=== PATIENT | male | born 1940 | race Caucasian/White ===

== ENCOUNTER → 2017-01-08 07:34 | Outpatient (CLI) | payer MEDICARE, OTHER ==
--- NOTE | ~2017-01-08 | HEMODYNAMI ---
PATIENT:FRANCIS OGLESBY MEDICAL RECORD: [id number] : 40 LOCATION:[facility] ADMISSION DATE: 01/08/17 Generatedon:01/08/20179:49 Patient name: FRANCIS OGLESBY Patient #: [id number] SSN: : 1940 Date of study: 01/08/2017 Page: Of Hemodynamic Procedure Report Patient Data Patient Demographics Procedure consent was obtained First Name: FRANCIS Gender: Male Last Name: RENY : 1940 [facility] Initial: BARBRA Age: 76 year(s) Patient #: [id number] Race: Additional ID: [id number] Contact details [address]: [address] [place] [address] [address] State: [place] City: [place] Zip code: [address] Past Medical History Allergies Allergen Reaction Date Comments Reported Other allergy 12/31/2014 Plavix (rash) Admission Admission Data Admission Date: 01/08/2017 Admission Time: 7:34 Procedure Procedure Types Cath Procedure Diagnostic Procedure C [facility] w/Coronaries FFR/IVUS Intra-Coronary IVUS Initial PCI Procedure Coronary Stent Initial Miscellaneous Procedures Moderate Sedation up to 15 minutes Procedure Description Procedure Date Procedure Date: 01/08/2017 Procedure Start Time: 9:25 Procedure End Time: 9:48 Procedure Staff Name Function Anand Garcia MD Performing Physician Celestino Kruger RN Nurse Cedric Gandara RT Monitor Breanna James RT Scrub Procedure Data Cath Procedure Fluoroscopy Diagnostic fluoroscopy Total fluoroscopy Time: 3.9 time: 3.9 min min Diagnostic fluoroscopy Total fluoroscopy dose: 538 dose: 538 mGy mGy Contrast Material Contrast Material Type Amount (ml) Isovue 300 90 Entry Location Entry Primary Successful Side Size Upsize Upsize Entry Closure Succes sful Closure Location (Fr) 1 (Fr) 2 (Fr) Remarks Device Remarks Femoral Right 5 Fr 6 Fr Exoseal artery Short Estimated blood loss: 10 ml Diagnostic catheters Device Type Used For End Catheter Placement Cordis 5Fr Pigtail Procedure Catheter (MP) Cordis 5Fr JL 4.0 Procedure Catheter (MP) Cordis 5Fr 3DRC Catheter Procedure (MP) Diagnostic Infinity 5Fr Procedure JL 6 catheter Procedure Complications No complications Procedure Medications Medication Administration Route Dosage 0.9% NaCl I.V. 100 ml/hr Oxygen NC 2 l/min Heparin Flush Bag added to field 2 bags (1000units/500ml NS) Lidocaine 2% added to field 20 Versed I.V. 1 mg Fentanyl I.V. 50 mcg Heparin Bolus I.V. 4000 units Fentanyl I.V. 25 mcg Hemodynamics Rest Heart Rate: 72 (bpm) Snapshots Pre Cath Intra NCS Post Cath Vital Signs Time Heart Resp SPO2 etCO2 [id number] NIBP (mmHg) Rhythm Pain Sedation Rate (ipm) (%) (mmHg) (mmHg) Status Level (bpm) 9:18:45 72 14 99 0 0 112/76(86) NSR 0 (11) 10(A) , No pain 9:23:26 77 20 100 0 0 109/64(95) NSR 0 (11) 10(A) , No pain 9:28:04 72 16 98 0 0 107/65(100) NSR 0 (11) 10(A) , No pain 9:32:45 71 16 97 0 0 104/58(71) NSR 0 (11) 9(A) , No pain 9:37:23 60 14 98 0 0 110/61(80) NSR 0 (11) 10(A) , No pain 9:42:04 75 16 97 0 0 92/59(67) NSR 0 (11) 10(A) , No pain 9:46:40 64 12 98 0 0 100/61(72) NSR 0 (11) 10(A) , No pain Medications Time Medication Route Dose Verified Delivered Reason Notes Effectiveness by by 9:16:49 0.9% NaCl I.V. 100 Celestino Celestino Per physician ml/hr Slick Kruger RN RN 9:17:06 Oxygen NC 2 Celestino Celestino Per physician l/min Slick Kruger RN RN 9:17:25 Heparin Flush added 2 Celestino Celestino used for Bag to bags Slick Kruger procedure (1000units/500ml field RN RN NS) 9:17:43 Lidocaine 2% added 20ml Celestino Celestino for local to vial Lorigan Lorphi anesthetic field RN RN 9:25:46 Versed I.V. 1 mg Celestino Celestino for sedation Slick Kruger RN RN 9:25:56 Fentanyl I.V. 50 Celestino Celestino for sedation mcg Slick Kruger RN RN 9:33:57 Heparin Bolus I.V. 4000 Celestino Celestino for units Slick Kruger anticoagulation RN RN 9:45:52 Fentanyl I.V. 25 Celestino Celestino for sedation mcg Slick Kruger RN black leather buffer Log Time Note 8:55:33 Celestino Kruger RN sent for patient. Start room use. ::33 Time tracking: Regular hours 9:07:38 Plan of Care:Hemodynamics will remain stable., Cardiac rhythm will remain stable., Comfort level will be maintained., Respiratory function will remain adequate., Patient/ family verbilizes understanding of procedure., Procedure tolerated without complication., Recovers from procedure without complications.. 9:08:51 Patient received from Pre/Post Procedure Room to [facility] 1 Alert and oriented. Tansferred to table in Supine position. 9:08:52 Warm blankets applied, and jackie hugger turned on for patient comfort. 9:08:53 Correct patient and procedure confirmed by team. 9:08:54 Signed procedure consent form obtained from patient. 9:08:55 ECG and BP/O2 sat monitors applied to patient. 9:16:49 0.9% NaCl 100 ml/hr I.V. was administered by Celestino Kruger RN; Per physician; 9:17:06 Oxygen 2 l/min NC was administered by Celestino Kruger RN; Per physician; 9:17:25 Heparin Flush Bag (1000units/500ml NS) 2 bags added to field was administered by Celestino Kruger RN; used for procedure; 9:17:43 Lidocaine 2% 20ml vial added to field was administered by Celestino Kruger RN; for local anesthetic; 9:17:51 Vital chart was started 9:21:47 Baseline sample Acquired. 9:21:52 Rhythm: paced 9:21:54 Full Disclosure recording started 9:22:08 H&P Date Dictated: 01/03/2017 Within 30 days and on chart., H&P Addendum completed by physician on day of procedure. (MUST COMPLETE FOR ALL OUTPATIENTS). 9:22:09 Pre-procedure instructions explained to patient. 9:22:09 Pre-op teaching completed and patient verbalized understanding. 9:22:16 Family in patients room. 9:22:18 Patient NPO since Midnight. 9:22:19 Is the patient allergic to Iodine/contrast media? No. 9:22:21 Is patient on blood thinner?Yes 9:22:23 ACC The patient was administered the following blood thiners within the last 24 hours: ACCEffient 9:22:26 Patient diabetic? Yes. 9:22:27 If diabetic: On Metformin? Yes 9:22:29 If on Metformin: Last Dose? 01/06/2017 9:22:31 Previous problem with sedation/anesthesia? No ? 9:22:32 Snore? Yes 9:22:33 Sleep apnea? No 9:22:34 Deviated septum? No 9:22:35 Opens mouth fully? Yes 9:22:35 Sticks out tongue? Yes 9:22:37 Airway obstruction? No ? 9:22:41 Dentures? Yes OUT 9:22:48 Pre procedure: right dorsailis pedis pulse 1+ Palpable, but thready & weak; easily obliterated 9:22:51 Patient pain scale 0/10 ?. 9:22:58 IV patent on arrival in left forearm with 0.9% NaCl at O. 9:23:00 Lab results completed and on chart. 9:23:03 Right groin area was prepped with chlora-prep and draped in sterile fashion 9:23:03 Alarms reviewed by R. N. 9:23:04 Sharps counted by scrub and verified by R.N. 9:23:05 --------ALL STOP TIME OUT------ 9:23:05 Final Timeout: patient, procedure, and site verified with staff and physician. All members of the team are in agreement. 9:23:07 Right groin site verified by team. 9:23:09 Physical assessment completed. ASA score P 2 - A patient with mild systemic disease as per Anand Garcia MD. 9:23:13 Sedation plan: IV Moderate Sedation Versed, Fentanyl 9:25:02 Use device set Femoral Dx 9:25:03 Tegaderm 4 x 4 opened to sterile field. 9:25:05 Acist Hand Control opened to sterile field. 9:25:06 Acist Manifold opened to sterile field. 9:25:07 Acist Syringe opened to sterile field. 9:25:07 Bag Decanter opened to sterile field. 9:25: Medline Cath Pack opened to sterile field. 9:25: Terumo 5Fr [place] Sheath opened to sterile field. 9:25:08 [place] 260cm J .035 wire opened to sterile field. 9:25: Diagnostic Infinity 5Fr Multipack catheter opened to sterile field. 9:25:16 Procedure started. 9::19 Local anesthetic to right femoral artery with Lidocaine 2% by Anand Garcia MD.INITIAL ACCESS ONLY 9::46 Versed 1 mg I.V. was administered by Celestino Kruger RN; for sedation; 9::56 Fentanyl 50 mcg I.V. was administered by Celestino Kruger RN; for sedation; 9::12 A 5 Fr sheath was inserted into the Right Femoral artery 9::46 A Cordis 5Fr Pigtail Catheter (MP) was advanced over the wire and used for Procedure. 9:27:23 LV angiography performed. 9:27:25 LV gram done using HARRY 9:27:29 EF : 10 % 9::38 Injector settings: Ml/sec: 10, Volume: 20, 9::43 Catheter removed. 9:27:45 A Cordis 5Fr JL 4.0 Catheter (MP) was advanced over the wire and used for Procedure. 9:28:33 Catheter removed. unable to cannulate vessel. 9:30:04 A Cordis 5Fr 3DRC Catheter (MP) was advanced over the wire and used for Procedure. 9:30:09 RCA angiography performed. 9:30:10 Catheter removed. 9:30:16 A Diagnostic Infinity 5Fr JL 6 catheter was advanced over the wire and used for Procedure. 9:30:44 LCA angiography performed. 9:31:00 Terumo 6Fr [place] Sheath opened to sterile field. 9:31:00 Merit BasixCompak Inflation Kit opened to sterile field. 9:31:01 Deleon Whisper J 300cm 0.014 guide wire opened to sterile field. 9:31:40 [place] IVUS Catheter opened to sterile field. 9:33:04 Catheter removed. 9:33:43 Medtronic Launcher 6Fr JL 6.0 guide catheter opened to sterile field. 9:33:57 Heparin Bolus 4000 units I.V. was administered by Celestino Kruger RN; for anticoagulation; 9:34:14 Sheath upsized to a 6 Fr Short. 9:37:35 6 Fr JL 6 guide catheter was inserted over the wire 9:38:33 Whisper wire advanced. 9:39:18 Wire advanced across lesion. 9:39:25 IVUS catheter advanced over wire. 9:40:15 IVUS pass to LAD lesion performed. 9:40:48 IVUS catheter removed over wire. 9:43:36 Inflation Number: 1 A [place] OTW 4.0 x 12 stent was prepped and advanced across the Prox LAD. The stent was deployed at 17 RUSTAM for 0:10 (min:sec). 9:43:51 Stent catheter was removed intact over wire. 9:43:52 Wire removed. 9:43:53 Guide catheter removed. 9:44:07 Cordis 6Fr Exoseal opened to sterile field. 9:44:16 Sheath removed intact; hemostasis achieved with Exoseal to the Right Femoral artery. 9:44:20 Procedure ended.(Physican Out) 9:45:09 Fluoroscopy time 03.90 minutes. 9:45:12 Fluoroscopy dose: 538 mGy 9:45:12 Flurop Dose total: 538 9:45:17 Contrast amount:Isovue 300 90ml. 9:45:18 Sharps counted by scrub and verified by R.N. 9:45:52 Fentanyl 25 mcg I.V. was administered by Celestino Kruger RN; for sedation; 9:46:29 Insertion/operative site no bleeding no hematoma. 9:46:31 Post-op/insertion site Right Femoral artery dressed using a 4 x 4 and Tegaderm. 9:46:33 Post Procedure Pulses reassessed and unchanged 9:46:37 Post-procedure physical assessment completed. ASA score P 2 - A patient with mild systemic disease as per Anand Garcia MD. 9:46:40 Post procedure rhythm: unchanged. 9:46:43 Estimated blood loss: 10 ml 9:46:45 Post procedure instruction explained to patient.Patient verbalizes understanding. 9:46:45 Patient needs reinforcement of post procedure teaching. 9:46:53 Procedure type changed to Cath procedure, Diagnostic procedure, LHC, LHC w/Coronaries, FFR/IVUS, Intra-Coronary IVUS Initial, PCI procedure, Coronary Stent Initial, Miscellaneous Procedures, Moderate Sedation up to 15 minutes 9:46:55 Procedure and supply charges have been captured, reviewed, submitted and are correct. 9:46:57 Procedure Complication : No complications 9:48:48 Vital chart was stopped 9:48:49 See physician's report for complete and final results. 9:48:50 Report given to Pre/Post Procedure Room. 9:48:53 Patient transfered to Pre/Post Procedure Room with Stretcher. 9:48:55 Procedure ended. 9:48:55 Full Disclosure recording stopped 9:49:02 End room use (Document Last) Intervention Summary Intervention Notes Time ActionType Lesion and Equipment Action# Pressure Duration Attributes Used 9:43:36 Place stent Prox LAD Eddie OTW 1 17 00:10 4.0 x 12 stent Device Usage Item Name Manufacture Quantity Catalog Hospital Part Current Minima l Lot# / Number Charge Number Stock Stock Serial# Code Tegaderm 4 3M 1 [id number] 263196 299780 5 x 4 Acist Hand Acist 1 35712 912334 205929 585774 5 Control Medical Systems Inc Acist Acist 1 51007 325355 280657 165131 5 Manifold Medical Systems Inc Acist Acist 1 59442 853855 183245 022574 20 Syringe Medical Systems Inc Bag Microtek 1 2002S 798171 76509 406411 5 Decanter Medical Inc. Medline Cardinal 1 [id number] 317519 57005 014620 5 Cath Pack Health Terumo 5Fr Terumo 1 [id number] 693341 813158 059823 [address] [place] [address] [facility] 1 241345 241382 022612 090648 30 260cm J .035 wire Diagnostic Cardinal 1 [id number] 338884 23995 322070 30 Infinity Health 5Fr Multipack catheter Cordis 5Fr Cardinal 1 [id number] 5 Pigtail Health Catheter (MP) Cordis 5Fr Cardinal 1 254150 5 JL 4.0 Health Catheter (MP) Cordis 5Fr Cardinal 1 537066 5 3DRC Health Catheter (MP) Diagnostic Cardinal 1 [id number] 980439 767552 305568 5 Infinity Health 5Fr JL 6 catheter Terumo 6Fr Terumo 1 IHR286 451158 147904 382558 40 [place] Sheath Merit Merit 1 [id number] 595374 254374 937546 15 [facility] Inflation Kit Deleon Deleon 1 [id number] 208532 713467 912386 5 Whisper J Vascular 300cm 0.014 guide wire [place] 1 [id number] 312230 249476 374470 8 [place] IVUS Catheter Medtronic Medtronic 1 [id number] 977128 45162 112342 0 Launcher 6Fr JL 6.0 guide catheter [place] OTW Medtronic 1 [id number] 362690 0874464 002695 5 [id number] 4.0 x 12 stent Cordis 6Fr Cardinal 1 EX600 455954 384363 623312 10 [facility] Gastrofy Signature Audit [place] Stage Time Signature Unsigned Intra-Procedure 01/08/2017 Cedric Gandara 9:49:29 AM RT(R) Signatures Monitor : Cedric Gandara RT Signature : Date : Time : [place] [id number] [place] [id number]
[~2017-01-08 07:34] MED LIST: ALEVE220 MG PO; ANTIVERT25 MG PO; ASPIRIN EC81 M1 PO; BUMEX2 MG PO; CENTRUM COMPLE1 EACH PO; COREG 3.1253.125 MG PO; EFFIENT10 MG PO; FISH OIL 1,0001 CA1 PO; FISH OIL PO; GLUCOPHAGE500 MG PO; ISOSORBIDE MONO60 M1 PO; K-TAB10 MEQ PO; LASIX40 MG PO; LIPITOR20 MG PO; POTASSIUM PO; PRILOSEC20 MG PO
[2017-01-08 08:21] VITALS: BP 133/67; BMI 25.0
[2017-01-08 08:37] LABS: BASOPHILS 0.4 % (0-2); HEMATOCRIT 40.6 % (42.0-54.0); HEMOGLOBIN 13.4 g/dL (13.5-17.5); IMMATURE GRANULOCYTES 0.3 % (0-5); MCH 32.8 pg (26.0-34.0); MCV 99.3 fL (80.0-100.0); MEAN PLATELET VOLUME 11.5 fL (7.4-10.4); MONOCYTES 12.3 % (2-11); PLATELET COUNT 172 10x3/uL (130-400); RBC 4.09 10x6/uL (4.20-6.10); RDW 15.3 % (11.5-14.5); WBC 7.8 10x3/uL (4.8-10.8)
[2017-01-08 08:51] LABS: ANION GAP 11.2 mmol/L (8-16); CALCIUM 8.8 mg/dL (8.5-10.1); CARBON DIOXIDE 31.4 mmol/L (21.0-32.0); CREATININE - SERUM 1.4 mg/dL (0.6-1.3); POTASSIUM - SERUM 3.6 mmol/L (3.5-5.1)
--- NOTE | 2017-01-08 10:00 | NUR ---
RECIEVED TO ROOM VIA STRETCHER FROM VAT OPERATOR WITH REPORTS OF ONE STENT TO THE LAD. 6 FR EXOSEAL R/GROIN CDI NO BLEEDING NO HEMATOMA NOTED. INSTRUCTED PATIENT TO KEEP HEAD FLAT ON PILLOW WITH RLE STRAIGHT.
--- NOTE | 2017-01-08 10:15 | NUR ---
1015 R/GROIN REMAINS CDI NO BLEEDING NO HEMATOMA NOTED PACED AT 71 WITH NO DISTRESS FAMILY AT SIDE
--- NOTE | 2017-01-08 10:44 | NUR ---
RESTING QUIETLY WITH EYES CLOSED NO DISTRESS NOTED. 6 FR EXOSEAL R/GROIN CDI NO BLEEDING NO HEMATOMA NOTED.
--- NOTE | 2017-01-08 11:30 | NUR ---
SANDWICH AND SODA TO BEDSIDE WITH R/GROIN CDI NO BLEEDING NO HEMATOMA. VSS WITH FAMILY AT SIDE NO DISTRESS NOTED
--- NOTE | 2017-01-08 12:30 | NUR ---
1230 REPOSITIONED TO SITTING WITH HOB UP 45 DEGREES CHEST PAIN DENIED WITH R/GROIN CDI NO BLEEDING NO HEMATOMA NOTED 1245 PIV REMOVED WITH DRESSING APPLIED. PATIENT UP TO GET DRESSED FOR DISCHARGE HOME. R/GROIN STABLE
--- NOTE | 2017-01-08 13:14 | NUR ---
VERBAL AND WRITTEN DISCHARGE GONE OVER WITH PATIENT AND FAMILY BOTH VERBALIZED UNDERSTANDING. LEFT VIA WC TO PARKING FOR SON TO DRIVE HOME CHEST PAIN DENIED AND R/GROIN CDI
--- NOTE | 2017-01-25 16:56 | OP ---
PATIENT NAME: FRANCIS OGLESBY MEDICAL RECORD: [id number] :40 LOCATION:D.CAT ADMISSION DATE: SURGEON: LIANA WALDEN MD DATE OF OPERATION: 01/08/2017 PROCEDURES: 1. PTCA and stent to LAD. 2. Intravascular ultrasound. 3. Left heart catheterization. 4. Selective coronary angiography. 5. Left ventriculogram. INDICATIONS: Angina, coronary artery disease, and cardiomyopathy. PROCEDURE IN DETAIL: After informed consent was obtained and after detailed explanation of risks, benefits as well as alternative therapies, the patient elected to proceed with angiogram and angioplasty. The right femoral area was prepped and draped in normal sterile fashion. The right femoral artery was cannulated via modified Seldinger technique with placement of 6-Pashto sheath. All catheters exchanged through this sheath. FINDINGS: The left ventriculogram was performed in the standard 30-degree HARRY view, reveals global hypokinesis that is severe, ejection fraction 15%. SELECTIVE CORONARY ANGIOGRAPHY: 1. Left main with no significant angiographic disease. 2. Left anterior descending has previously placed stents, these are patent; however, there is 75% stenosis in the ostium of the LAD confirmed by intravascular ultrasound. 3. Left circumflex has moderate irregularities, but no flow-limiting stenosis. 4. 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 PTCA STENT OF THE LAD: The stent used is 4.0 x 12 mm [place]. Result was 0% residual stenosis. OVERALL IMPRESSION: Successful PTCA and stent of the LAD going from 75% initial stenosis to 0% residual stenosis. TRANSINT:[id number] Voice Confirmation ID: [id number] DOCUMENT ID: [id number] LIANA WALDEN MD at 1656 CC: [id number] DICTATION DATE: 01/08/17 0947 MARKETING/SALES PERSON: 01/08/17 1037 [facility] CLI 01/08/17 [facility] [address] [place] [address]
== END | disposition home or self-care (01) ==
LOC: D.CATH 07:34
PROVIDERS: Internal Medicine Interventional Cardiology
DX: I25.10 Atherosclerotic heart disease of native coronary artery without angina pectoris (principal); I25.5 Ischemic cardiomyopathy; I10 Essential (primary) hypertension; Z95.810 Presence of automatic (implantable) cardiac defibrillator; R06.02 Shortness of breath; Z01.812 Encounter for preprocedural laboratory examination
CPT/HCPCS: 93458; 92978; C9600

== ENCOUNTER → 2017-06-24 08:58 | Outpatient (CLI) | payer MEDICARE, OTHER ==
[~2017-06-24] VITALS: Ht 165.1 cm; Wt 68.2 kg
--- NOTE | ~2017-06-24 | OP ---
PATIENT NAME: FRANCIS OGLESBY MEDICAL RECORD: [id number] :40 LOCATION:D.CAT ADMISSION DATE: SURGEON: LIANA WALDEN MD DATE OF OPERATION: 06/24/2017 PROCEDURES: 1. PTCA stent LAD. 2. Left heart catheterization. 3. Selective coronary angiography. 4. Left ventriculogram. INDICATION: Angina and coronary artery disease. PROCEDURE IN DETAIL: After informed consent was obtained and after detailed explanation of risks, benefits as well as alternative therapies, the patient elected to proceed with angiogram and angioplasty. The right femoral area was prepped and draped in normal sterile fashion. The right femoral artery was cannulated via modified Seldinger technique with placement of 6-[place] sheath. All catheters exchanged through this sheath. FINDINGS: The left ventriculogram was performed in standard 30-degree HARRY view, reveals severe global hypokinesis throughout all segments. Overall ejection fraction in the 15% range. SELECTIVE CORONARY ANGIOGRAPHY: 1. Right coronary artery is chronically totally occluded. 2. Left main is with no significant angiographic disease. 3. Left circumflex is with no significant angiographic disease. 4. Left anterior descending has a long area of 70% stenosis to 80% stenosis in the mid vessel. PTCA STENT OF THE LAD: The stent used is a 3.0 x 26 mm [place]. Result was 0% residual stenosis. OVERALL IMPRESSION: Successful percutaneous transluminal coronary angioplasty stent of the left anterior descending going from 70% to 80% initial stenosis to 0% residual. TRANSINT:[id number] Voice Confirmation ID: [id number] DOCUMENT ID: [id number] LIANA WALDEN MD at 1056 CC: [id number] DICTATION DATE: 06/24/17 1211 PIT SLAGMAN: 06/24/17 1226 DEP CLI 06/24/17 [place] [id number]
--- NOTE | ~2017-06-24 | HEMODYNAMI ---
PATIENT:FRANCIS OGLESBY MEDICAL RECORD: [id number] : 40 LOCATION:[facility] ADMISSION DATE: 06/24/17 Generatedon:06/24/201712:16 Patient name: FRANCIS OGLESBY Patient #: [id number] SSN: : 1940 Date of study: 06/24/2017 Page: Of Hemodynamic Procedure Report Patient Data Patient Demographics Procedure consent was obtained First Name: FRANCIS Gender: Male Last Name: RENY : 1940 [facility] Initial: BARBRA Age: 77 year(s) Patient #: [id number] Race: Additional ID: [id number] Contact details Address: [address] [place] [address] State: [place] City: [place] Zip code: [address] Past Medical History Allergies Allergen Reaction Date Comments Reported Other allergy 12/31/2014 Plavix (rash) Other allergy 06/24/2017 PLAVIX Admission Admission Data Admission Date: 06/24/2017 Admission Time: 8:58 Admit Source: Other Insurance Payor: Medicare Height (in.): 65 BSA: 1.75 (m2) Height (cm.): 165.1 BMI: 24.96 (kg/m2) Weight (lbs.): 150 Weight (kg.): 68.04 Lab Results Lab Result Date: 06/24/2017 Lab Result Time: 0:00 Biochemistry Name Units Result Min Max Creatinine mg/dl 1.6 --(----)-* 0.6 1.3 Procedure Procedure Types Cath Procedure Diagnostic Procedure LHC LH w/Coronaries PCI Procedure Coronary Stent Coronary Stent Initial Procedure Description Procedure Date Procedure Date: 06/24/2017 Procedure Start Time: 11:59 Procedure End Time: 12:12 Procedure Staff Name Function Brandee Albarado RT Monitor Cedric Gandara RT Scrub Janny Delacruz RN Nurse Anand Garcia MD Performing Physician Procedure Data Cath Procedure Fluoroscopy Diagnostic fluoroscopy Total fluoroscopy Time: 2.5 time: 2.5 min min Diagnostic fluoroscopy Total fluoroscopy dose: dose: 166.6 mGy 166.6 mGy Contrast Material Contrast Material Type Amount (ml) Isovue 300 90 Entry Location Entry Primary Successful Side Size Upsize Upsize Entry Closure Succes sful Closure Location (Fr) 1 (Fr) 2 (Fr) Remarks Device Remarks Femoral Right 5 Fr 6 Fr Exoseal artery Short Estimated blood loss: 10 ml Diagnostic catheters Device Type Used For End Catheter Placement MULTIPACK Pigtail 5 Fr LV Angiography catheter MULTIPACK JL 4.0 5Fr Left Coronary catheter Angiography MULTIPACK 3DRC 5Fr Right Coronary catheter Angiography DIAGNOSTIC JL 5 5Fr Left Coronary catheter ([id number]) Angiography Procedure Complications No complications Procedure Medications Medication Administration Route Dosage Oxygen NC 2 l/min Lidocaine 2% added to field 20 Heparin Flush Bag added to field 2 bags (1000units/500ml NS) 0.9% NaCl I.V. 100 ml/hr Versed I.V. 1 mg Fentanyl I.V. 50 mcg Versed I.V. 1 mg Fentanyl I.V. 50 mcg Versed I.V. 0.5 mg Heparin Bolus I.V. 4000 units Effient P.O. 10 mg Hemodynamics Rest BSA: 1.75 (m2) O2 Consumption: Estimated: 204.55 (ml/min) O2 Consumption indexed : Estimated:116.89 (ml/min/m) Heart Rate: 76 (bpm) Snapshots Pre Cath Intra NCS Post Cath Vital Signs Time Heart Resp SPO2 etCO2 NIBP (mmHg) Rhythm Pain Sedation Rate (ipm) (%) (mmHg) Status Level (bpm) 11:24:34 84 18 96 0 120/81(102) NSR 0 (11) 10(A) , No pain 11:28:40 77 16 99 0 104/67(82) NSR 0 (11) 10(A) , No pain 11:32:46 78 14 96 0 104/68(87) NSR 0 (11) 10(A) , No pain 11:36:50 71 15 98 35.9 113/78(90) NSR 0 (11) 10(A) , No pain 11:41:40 77 15 93 0 107/76(87) NSR 0 (11) 10(A) , No pain 11:45:57 58 13 94 21.7 100/56(86) NSR 0 (11) 10(A) , No pain 11:50:06 75 14 96 0 97/65(88) NSR 0 (11) 10(A) , No pain 11:54:10 71 27 94 0 100/78(91) NSR 0 (11) 10(A) , No pain 11:58:16 76 19 95 0 105/76(103) NSR 0 (11) 9(A) , No pain 12:02:24 71 23 94 0 102/76(96) NSR 0 (11) 9(A) , No pain 12:06:29 75 24 96 0 106/75(87) NSR 0 (11) 9(A) , No pain 12:10:39 66 23 96 0 106/71(85) NSR 0 (11) 10(A) , No pain Medications Time Medication Route Dose Verified Delivered Reason Notes Effectiveness by by 11:26:53 Oxygen NC 2 Anand Buffie used for l/min Radha Delacruz RN procedure 11:27:00 Lidocaine 2% added 20ml Anand Anand for local to vial Radha Garcia MD anesthetic field 11:27:42 Heparin Flush added 2 Anand Anand used for Bag to bags Radha Garcia MD procedure (1000units/500ml field NS) 11:27:55 0.9% NaCl I.V. 100 Anandyahir Leivaie used for ml/hr Radha Delacruz RN procedure 11:54:36 Versed I.V. 1 mg Anand Soliman for sedation Radha Delacruz RN 11:54:42 Fentanyl I.V. 50 Anand Soliman for sedation mcg Radha Delacruz RN 12:00:14 Versed I.V. 1 mg Anand Leivaie for sedation Radha Delacruz RN 12:00:18 Fentanyl I.V. 50 Anand Soliman for sedation mcg Radha Delacruz RN 12:02:47 Versed I.V. 0.5 Anand Leivaie for sedation mg Radha Delacruz RN 12:05:11 Heparin Bolus I.V. 4000 Anand Soliman for verifi ed units Radha Delacruz RN anticoagulation with dr garcia 12:16:10 Effient P.O. 10 mg Anand Soliman for Radha Delacruz RN antiplatelet therapy Procedure Log Time Note 11:05:45 Janny Delacruz RN sent for patient. Start room use. 11:12:50 Patient Weight : 150 lbs 11:12:50 Patient Height : 65 inches 11:12:53 Time tracking: Regular hours 11:12:56 Plan of Care:Hemodynamics will remain stable., Cardiac rhythm will remain stable., Comfort level will be maintained., Respiratory function will remain adequate., Patient/ family verbilizes understanding of procedure., Procedure tolerated without complication., Recovers from procedure without complications.. 11:13:03 Patient received from Pre/Post Procedure Room to CCL 3 Alert and oriented. Tansferred to table in Supine position. 11:13:04 Correct patient and procedure confirmed by team. 11:13:04 Warm blankets applied, and jackie hugger turned on for patient comfort. 11:13:05 Signed procedure consent form obtained from patient. 11:13:06 ECG and BP/O2 sat monitors applied to patient. 11:13:08 Full Disclosure recording started 11:23:35 Vital chart was started 11:23:37 Rhythm: paced 11:23:47 H&P Date Dictated: 06/10/2017 Within 30 days and on chart., H&P Addendum completed by physician on day of procedure. (MUST COMPLETE FOR ALL OUTPATIENTS). 11:23:48 Pre-op teaching completed and patient verbalized understanding. 11:23:48 Pre-procedure instructions explained to patient. 11:23:49 Family in waiting room. 11:23:51 Patient NPO since Midnight. 11:24:24 Patient allergic to Other allergyPLAVIX 11:24:26 Is the patient allergic to Iodine/contrast media? No. 11:24:28 Is patient on blood thinner?Yes 11:24:30 ACC The patient was administered the following blood thiners within the last 24 hours: ACCEffient 11:24:32 Patient diabetic? Yes. 11:24:36 If diabetic: On Metformin? Yes 11:24:40 If on Metformin: Last Dose? 06/20/2017 11:24:43 Previous problem with sedation/anesthesia? No ? 11:24:44 Snore? No 11:24:45 Sleep apnea? No 11:24:47 Deviated septum? No 11:24:51 Opens mouth fully? Yes 11:24:55 Sticks out tongue? Yes 11:25:03 Dentures? No ? 11:25:06 Pre procedure: right dorsailis pedis pulse 2+ Normal; easily identifiable; not easily obliterated 11:25:09 Patient pain scale 0/10 ?. 11:25:16 IV patent on arrival in left hand with 0.9% NaCl at [facility]. 11:25:19 Lab results completed and on chart. 11:25:22 Right groin area was prepped with chlora-prep and draped in sterile fashion 11:25:23 Sharps counted by scrub and verified by R.N. 11:25:23 Alarms reviewed by R. N. 11:25:26 Use device set Femoral Dx 11:25:27 Bag Decanter (2002S) opened to sterile field. 11:25:27 ACIST Syringe (30109) opened to sterile field. 11:25:28 SHEATH 5FR [place] (FPG319) opened to sterile field. 11:25:28 Medline Cath Pack ([id number]) opened to sterile field. 11:25:29 DIAGNOSTIC WIRE .035 260cm J wire (568752) opened to sterile field. 11:25:30 ACIST Manifold (97996) opened to sterile field. 11:25:30 ACIST Hand Control (48623) opened to sterile field. 11:25:38 Tegaderm 4 x 4 (1626W) opened to sterile field. 11:26:53 Oxygen 2 l/min NC was administered by Janny Delacruz RN; used for procedure; 11:27:00 Lidocaine 2% 20ml vial added to field was administered by Anand Garcia MD; for local anesthetic; 11:27:42 Heparin Flush Bag (1000units/500ml NS) 2 bags added to field was administered by Anand Garcia MD; used for procedure; 11:27:55 0.9% NaCl 100 ml/hr I.V. was administered by Janny Delacruz RN; used for procedure; 11:31:35 Baseline sample Acquired. 11:51:15 Procedure delayed due to: PHYSICAN IN ANOTHER PROCEDURE 11::55 Final Timeout: patient, procedure, and site verified with staff and physician. All members of the team are in agreement. 11:52:57 Right groin site verified by team. 11:53:00 Physical assessment completed. ASA score P 1 - A normal healthy patient as per Anand Garcia MD. 11:53:03 Sedation plan: IV Moderate Sedation Medication:Versed, Fentanyl 11:54:36 Versed 1 mg I.V. was administered by Janny Delacruz RN; for sedation; 11:54:42 Fentanyl 50 mcg I.V. was administered by Janny Delacruz RN; for sedation; 11:59:01 Procedure started. 11:59:05 Local anesthetic to right femoral artery with Lidocaine 2% by Anand Garcia MD.INITIAL ACCESS ONLY 11:59:15 A 5 Fr sheath was inserted into the Right Femoral artery 11:59:37 PERCUTANEOUS ENTRY 19GA needle opened to sterile field. 11:59:38 DIAGNOSTIC Multipack 5Fr catheter set ([id number]) opened to sterile field. 11:59:53 A MULTIPACK Pigtail 5 Fr catheter was advanced over the wire and used for LV Angiography. 12:00:14 Versed 1 mg I.V. was administered by Janny Delacruz RN; for sedation; 12:00:18 Fentanyl 50 mcg I.V. was administered by Janny Delacruz RN; for sedation; 12:00:20 LV gram done using HARRY 12:00:25 EF : 15 % 12:00:30 Injector settings: Ml/sec: 10, Volume: 20, 12:00:31 Catheter removed. 12:00:41 A MULTIPACK JL 4.0 5Fr catheter was advanced over the wire and used for Left Coronary Angiography. REMOVED, UNABLE TO CANNULATE 12:01:19 A MULTIPACK 3DRC 5Fr catheter was advanced over the wire and used for Right Coronary Angiography. 12:01:55 Catheter removed. 12:02:10 A DIAGNOSTIC JL 5 5Fr catheter ([id number]) was advanced over the wire and used for Left Coronary Angiography. 12:02:47 Versed 0.5 mg I.V. was administered by Janny Delacruz RN; for sedation; 12:02:55 Use device set RADHA PCI 12:02:58 SHEATH 6FR [place] (WTO993) opened to sterile field. 12:02:59 INFLATOR Merit BasixCompak (CM9146) opened to sterile field. 12:03:04 CHOICE PT Extra Support 182cm wire ([id number]) opened to sterile field. 12:03:28 Catheter removed. 12:03:36 Sheath upsized to a 6 Fr Short. 12:05:09 GUIDE 6FR JL 4.0 catheter ([id number]) opened to sterile field. 12:05:11 Heparin Bolus 4000 units I.V. was administered by Janny Delacruz RN; for anticoagulation; verified with dr garcia 12:05:18 6 Fr JL 4 guide catheter was inserted over the wire 12:06:12 CHOICE PT ES wire advanced. 12:06:31 Inflation Number: 1 A SKYE RX 3.0 x 26 stent ([id number]) was prepped and advanced across the Mid LAD. The stent was deployed at 17 RUSTAM for 0:07 (min:sec). 12:06:49 Stent catheter was removed intact over wire. 12:06:50 Guide catheter removed. 12:06:50 Wire removed. 12:07:04 Sheath removed intact; hemostasis achieved with Exoseal to the Right Femoral artery. 12:07:10 Procedure ended.(Physican Out) 12:07:28 EXOSEAL 6Fr (EX600) opened to sterile field. 12:07:36 Fluoroscopy time 02.50 minutes. 12:07:45 Fluoroscopy dose: 166.6 mGy 12:07:45 Flurop Dose total: 166.6 12:07:48 Contrast amount:Isovue 300 90ml. 12:07:49 Sharps counted by scrub and verified by R.N. 12:08:34 Insertion/operative site no bleeding no hematoma. 12:08:36 Post-op/insertion site Right Femoral artery dressed using a 4 x 4 and Tegaderm. 12:08:39 Post right femoral artery:stable, clean and dry 12:08:40 Post Procedure Pulses reassessed and unchanged 12:08:42 Post-procedure physical assessment completed. ASA score P 2 - A patient with mild systemic disease as per Anand Garcia MD. 12:08:44 Post procedure rhythm: unchanged. 12:08:46 Estimated blood loss: 10 ml 12:08:48 Patient needs reinforcement of post procedure teaching. 12:08:48 Post procedure instruction explained to patient.Patient verbalizes understanding. 12:08:55 Procedure type changed to Cath procedure, Diagnostic procedure, LHC, LHC w/Coronaries, PCI procedure, Coronary Stent, Coronary Stent Initial 12:09:17 Procedure Complication : No complications 12:09:21 See physician's report for complete and final results. 12:12:17 Procedure and supply charges have been captured, reviewed, submitted and are correct. 12:12:18 Vital chart was stopped 12:12:20 Report given to Pre/Post Procedure Room. 12:12:23 Patient transfered to Pre/Post Procedure Room with Stretcher. 12:12:30 Full Disclosure recording stopped 12:12:30 Procedure ended. 12:12:34 End room use (Document Last) 12:16:10 Effient 10 mg P.O. was administered by Janny Delacruz RN; for antiplatelet therapy; Intervention Summary Intervention Notes Time ActionType Lesion and Equipment Used Action# Pressure Duration Attributes 12:06:31 Place stent Mid LAD SKYE RX 3.0 x 1 17 00:07 26 stent ([id number]) Device Usage Item Name Manufacture Quantity Catalog Number Hospital Part Current M inimal Lot# / Charge Number Stock Stock Serial# Code ACIST Syringe Acist 1 42254 165213 685950 452816 2 0 (83118) Medical Systems Inc Bag Decanter Microtek 1 2001S 322772 61689 588281 5 (2001S) Medical Inc. Medline Cath Cardinal 1 [id number] 889977 01128 379985 5 Pack Health ([id number]) SHEATH 5FR Terumo 1 BYD693 401086 694420 461600 4 0 [place] (XKU025) DIAGNOSTIC [place] 1 628472 870367 378055 344880 3 0 WIRE .035 260cm J wire (265516) ACIST Hand Acist 1 41850 900479 299777 025552 5 Control Medical (34410) Systems Inc ACIST Manifold Acist 1 91554 773720 776766 034427 5 (14198) Medical Systems Inc Tegaderm 4 x 4 3M 1 1626W 658983 552336 034536 5 (1626W) PERCUTANEOUS Cook Medical 1 O19619 880388 236563 5 ENTRY 19GA needle DIAGNOSTIC Cardinal 1 JU6423 371116 23561 695068 3 0 Multipack 5Fr Health catheter set (PI1744) MULTIPACK Cardinal 1 467880 5 Pigtail 5 Fr Health catheter MULTIPACK JL Cardinal 1 195942 5 4.0 5Fr Health catheter MULTIPACK 3DRC Cardinal 1 030035 5 5Fr catheter Health DIAGNOSTIC JL Cardinal 1 [id number] 592966 116256 806494 5 5 5Fr catheter Health (707550F) SHEATH 6FR Terumo 1 [id number] 719181 159692 757868 4 0 [place] (TAK968) INFLATOR Merit Merit 1 RP5284 476663 976058 924827 1 5 Inspire [facility] (KY7627) CHOICE PT Aldrich 1 [id number] 764162 047871 361975 5 Extra Support Scientific 182cm wire ([id number]) GUIDE 6FR JL Medtronic 1 [id number] 760621 00179 508995 1 4.0 catheter (IN2WL28) SKYE RX 3.0 x Medtronic 1 [id number] 920803 3200120 782929 5 [id number] 26 stent ([id number]) EXOSEAL 6Fr Cardinal 1 EX600 110338 806864 179527 1 0 (EX600) Health Signature Audit [place] Stage Time Signature Unsigned Intra-Procedure 06/24/2017 Brandee Irvin Counts 12:12:45 PM Counts RT(R) RT(R) 06/24/2017 12:15:56 PM Intra-Procedure 06/24/2017 Brandee 12:16:29 PM Counts RT(R) Signatures Monitor : Brandee Signature : Counts RT Date : Time : [address] [place] [address]
[~2017-06-24 08:58] MED LIST changes: +OMEPRAZOLE20 M1 PO
[2017-06-24 09:58] VITALS: BP 125/74; Ht 165.1 cm; Wt 68.2 kg
[2017-06-24 10:27] LABS: ANION GAP 11.2 mmol/L (8-16); CALCIUM 8.8 mg/dL (8.5-10.1); CARBON DIOXIDE 30.2 mmol/L (21.0-32.0); CREATININE - SERUM 1.6 mg/dL (0.6-1.3); POTASSIUM - SERUM 4.4 mmol/L (3.5-5.1)
[2017-06-24 10:35] LABS: BASOPHILS 0.5 % (0-2); EOSINOPHILS 5.8 % (0-7); HEMATOCRIT 37.3 % (42.0-54.0); IMMATURE GRANULOCYTES 0.3 % (0-5); LYMPHOCYTES 17.8 % (15-50); MCH 32.2 pg (26.0-34.0); MCHC 32.2 g/dL (31.0-37.0); MEAN PLATELET VOLUME 11.8 fL (7.4-10.4); NEUTROPHILS 63.6 % (40-80); PLATELET COUNT 165 10x3/uL (130-400); RBC 3.73 10x6/uL (4.20-6.10); RDW 15.8 % (11.5-14.5); WBC 7.4 10x3/uL (4.8-10.8)
== END | disposition home or self-care (01) ==
LOC: D.CATH 08:58
PROVIDERS: Internal Medicine Interventional Cardiology
DX: I25.119 Atherosclerotic heart disease of native coronary artery with unspecified angina pectoris (principal); R06.00 Dyspnea, unspecified; Z95.810 Presence of automatic (implantable) cardiac defibrillator; E11.9 Type 2 diabetes mellitus without complications; Z01.812 Encounter for preprocedural laboratory examination
CPT/HCPCS: 93458; C9600

== ENCOUNTER → 2017-09-02 18:31 | Outpatient (CLI) | payer MEDICARE, OTHER ==
[2017-06-24 09:58] VITALS: BMI 25.0
[~2017-09-02 18:31] MED LIST changes: +ALDACTONE25 MG PO; +KLOR-CON M2020 MEQ PO; +MECLIZINE HCL25 MG PO
[2017-09-02 19:29] LABS: ANION GAP 11.8 mmol/L (8-16); CARBON DIOXIDE 31.9 mmol/L (21.0-32.0); CREATININE - SERUM 1.5 mg/dL (0.6-1.3); POTASSIUM - SERUM 3.7 mmol/L (3.5-5.1)
== END | disposition home or self-care (01) ==
LOC: D.LABREF 18:31
PROVIDERS: Internal Medicine Interventional Cardiology
DX: I42.9 Cardiomyopathy, unspecified (principal)

== ENCOUNTER 2017-10-11 16:48 | Inpatient (IN) | payer MEDICARE, OTHER ==
[~2017-10-11] VITALS: Ht 165.1 cm; Wt 69.1 kg
[~2017-10-11 16:48] MED LIST changes: -ALDACTONE25 MG PO; -KLOR-CON M2020 MEQ PO; -MECLIZINE HCL25 MG PO
[2017-10-11] MEDS ORDERED: LIPITOR20 MG PO (16:59)
[2017-10-11] MEDS ORDERED: BUMEX2 MG PO (17:00)
[2017-10-11] MEDS ORDERED: KLOR-CON M2020 MEQ PO (17:02)
[2017-10-11 18:11] VITALS: BP 123/77
[2017-10-11 18:49] LABS: ALBUMIN 3.5 g/dL (3.4-5.0); BILIRUBIN - TOTAL 1.06 mg/dL (0.2-1.3); CALCIUM 8.8 mg/dL (8.5-10.1); CARBON DIOXIDE 28.6 mmol/L (21.0-32.0); CREATININE - SERUM 1.6 mg/dL (0.6-1.3); POTASSIUM - SERUM 3.6 mmol/L (3.5-5.1); PROTEIN - SERUM 6.9 g/dL (6.4-8.2)
[2017-10-11 18:55] LABS: APPEARANCE CLEAR (CLEAR); COLOR YELLOW (YELLOW)
[2017-10-11 19:01] LABS: BASOPHILS 0.2 % (0-2); EOSINOPHILS 1.8 % (0-7); HEMATOCRIT 33.1 % (42.0-54.0); HEMOGLOBIN 10.7 g/dL (13.5-17.5); IMMATURE GRANULOCYTES 0.3 % (0-5); LYMPHOCYTES 9.2 % (15-50); MCH 32.3 pg (26.0-34.0); MCHC 32.3 g/dL (31.0-37.0); MEAN PLATELET VOLUME 11.7 fL (7.4-10.4); MONOCYTES 7.8 % (2-11); NEUTROPHILS 80.7 % (40-80); PLATELET COUNT 164 10x3/uL (130-400); RBC 3.31 10x6/uL (4.20-6.10); RDW 16.6 % (11.5-14.5); WBC 9.7 10x3/uL (4.8-10.8)
[2017-10-11 19:01] LABS: BACTERIA FEW /hpf (NONE SEEN); BILIRUBIN NEGATIVE (NEGATIVE); GLUCOSE NEGATIVE (NEGATIVE); KETONE NEGATIVE (NEGATIVE); NITRITE NEGATIVE (NEGATIVE); PROTEIN NEGATIVE (NEGATIVE); RED CELLS - URINE OCC /hpf (0-5); UROBILINOGEN NORMAL (NORMAL); WHITE CELLS - URINE 0-5 /hpf (0-5)
[2017-10-11 19:02] LABS: THYROID STIMULATING HORMONE 3.6 uIU/mL (0.36-3.74)
[2017-10-11 19:09] LABS: TROPONIN-I 0.084 ng/mL (0.000-0.060)
[2017-10-11 19:30] VITALS: BP 135/88
[2017-10-11 21:37] VITALS: BP 114/72
[2017-10-11] MEDS ORDERED: MECLIZINE HCL25 MG PO (23:44)
[2017-10-11] MEDS ORDERED: EFFIENT10 MG PO (23:45)
[2017-10-11 23:51] VITALS: BP 114/72; BMI 25.8
[2017-10-12 01:32] VITALS: BP 121/87
[2017-10-12 04:57] LABS: BASOPHILS 0.3 % (0-2); EOSINOPHILS 1.6 % (0-7); HEMATOCRIT 34.7 % (42.0-54.0); HEMOGLOBIN 11.1 g/dL (13.5-17.5); IMMATURE GRANULOCYTES 0.3 % (0-5); LYMPHOCYTES 9.5 % (15-50); MCH 32.5 pg (26.0-34.0); MCV 101.5 fL (80.0-100.0); MEAN PLATELET VOLUME 11.9 fL (7.4-10.4); MONOCYTES 8.9 % (2-11); NEUTROPHILS 79.4 % (40-80); PLATELET COUNT 172 10x3/uL (130-400); RBC 3.42 10x6/uL (4.20-6.10); RDW 16.7 % (11.5-14.5); WBC 9.5 10x3/uL (4.8-10.8)
[2017-10-12 05:37] LABS: CALC OSMOLALITY 290 mosm/kg (275-300); CALCIUM 8.9 mg/dL (8.5-10.1); CARBON DIOXIDE 29.1 mmol/L (21.0-32.0); CHLORIDE - SERUM 103 mmol/L (98-107); CKMB 1.3 U/L (0.0-3.6); CREATINE KINASE 54 UL (21-232); CREATININE - SERUM 1.7 mg/dL (0.6-1.3); GLUCOSE 171 mg/dL (74-106); POTASSIUM - SERUM 3.5 mmol/L (3.5-5.1); SODIUM 140 mmol/L (136-145); TROPONIN-I 0.102 ng/mL (0.000-0.060); UREA NITROGEN 36 mg/dL (7-18); eGFR NON AFRICAN AMERICAN 42 mL/min (90-120)
[2017-10-12 06:11] VITALS: BP 116/77
[2017-10-12 09:07] VITALS: BP 116/65
[2017-10-12 10:36] VITALS: Ht 165.1 cm; Wt 69.1 kg
[2017-10-12 12:29] VITALS: BP 101/64
[2017-10-12 16:54] VITALS: BP 88/46
[2017-10-12 20:51] VITALS: BP 115/70
[2017-10-13 00:37] VITALS: BP 112/70
[2017-10-13 06:06] VITALS: BP 108/64
[2017-10-13 08:48] VITALS: BP 117/84
[2017-10-13 08:48] LABS: ANION GAP 11.9 mmol/L (8-16); CALCIUM 8.8 mg/dL (8.5-10.1); CARBON DIOXIDE 29.8 mmol/L (21.0-32.0); CREATININE - SERUM 1.6 mg/dL (0.6-1.3)
[2017-10-13 08:49] LABS: POTASSIUM - SERUM 4.7 mmol/L (3.5-5.1)
[2017-10-13 11:58] VITALS: BP 122/69
[2017-10-13 17:09] VITALS: BP 99/63
[2017-10-13 20:30] VITALS: BP 114/66
[2017-10-14 00:30] VITALS: BP 104/57
[2017-10-14 04:30] VITALS: BP 137/59
[2017-10-14 09:39] VITALS: BP 126/67
[2017-10-14 13:30] VITALS: BP 115/68
[2017-10-14 17:09] VITALS: BP 111/91
[2017-10-14 20:00] VITALS: BP 120/62
[2017-10-15] VITALS: BP 100/55
[2017-10-15 04:00] VITALS: BP 103/58
[2017-10-15 08:21] VITALS: BP 112/78
[2017-10-15 11:47] VITALS: BP 114/60
[2017-10-15 16:30] VITALS: BP 98/68
[2017-10-15 20:49] VITALS: BP 115/76
[2017-10-16 00:35] VITALS: BP 124/61
[2017-10-16 05:15] VITALS: BP 99/57
[2017-10-16 07:55] VITALS: BP 88/60
[2017-10-16 11:14] VITALS: BP 113/76
== END 2017-10-16 17:20 | disposition home health service (06) | DRG 292 ==
LOC: D.ER 16:48 → D.EDHOLD 19:49 → D.M2 19:49
PROVIDERS: Emergency Medicine; Internal Medicine Cardiovascular Disease
DX: I11.0 Hypertensive heart disease with heart failure (principal); I24.8 Other forms of acute ischemic heart disease; I50.21 Acute systolic (congestive) heart failure; Z95.0 Presence of cardiac pacemaker; I42.9 Cardiomyopathy, unspecified; I25.10 Atherosclerotic heart disease of native coronary artery without angina pectoris; I34.0 Nonrheumatic mitral (valve) insufficiency

== ENCOUNTER 2017-10-22 17:32 | Inpatient (IN) | payer MEDICARE, OTHER ==
[~2017-10-22] VITALS: Ht 165.1 cm; Wt 67.5 kg
--- NOTE | ~2017-10-22 | CN ---
PATIENT NAME:FRANCIS OGLESBY MEDICAL RECORD: [id number] : 40 LOCATION:[facility] D.2[facility] ADMIT DATE: 10/23/17 ACCOUNT: [id number] CONSULTING PHYSICIAN: NICOLASA SLOAN MD REFERRING PHYSICIAN: VICKY HOFFMAN MD DATE OF CONSULTATION: HISTORY: A 77-year-old gentleman with a known history of coronary artery disease status post PCI stenting, has a history of cardiomyopathy of 20%, severe MR. Rapid volume overload, elevated BNP. We are asked to see him concerning his cardiovascular status. PAST MEDICAL HISTORY: Includes; 1. History of coronary artery disease. 2. Hypertension. 3. Mitral regurgitation. 4. Diabetes mellitus. ALLERGIES: PLAVIX. MEDICATIONS: Glucophage 500 b.i.d., Protonix 20 every day, meclizine 25 t.i.d. p.r.n., Bumex 20 b.i.d., Imdur 60 every day, carvedilol 3.125 every day, atorvastatin 20 every day, Effient 10 every day. SOCIAL HISTORY: Lives here in [place]. Nonsmoker, nondrinker typically takes care of all ADLs until a month ago. REVIEW OF SYSTEMS: The patient reports easy bruising but reports no swollen glands. The patient reports no fever, no night sweats, no significant weight gain, no significant weight loss. No significant exercise tolerance. The patient reports no dry eyes, no irritation, no vision change. Patient reports no difficulty hearing and no ear pain. Patient reports no frequent nose bleeds or nose and sinus problems. Patient reports on arm pain on exertion. No shortness of breath while lying down. No history of heart murmur. Patient reports no cough, no wheezing or coughing up blood. Patient reports no abdominal pain, no vomiting. Normal appetite. No diarrhea and not vomiting blood. No nausea and no constipation. Patient reports no incontinence. No difficulty urinating. No hematuria. No increased frequency. Patient reports no muscle aches. No weakness, no arthralgias, no back pain. No swelling of the extremities. Patient reports no abnormal mole, no jaundice, no rashes. Reports no loss of consciousness. No weakness and no numbness. No seizures, dizziness, or headaches. The patient reports no depression, no sleep disturbance, feeling safe in a relationship and no alcohol abuse. Patient reports on fatigue. Reports no runny nose or sinus pressure. No itching, no hives, and no frequent sneezing. PHYSICAL EXAMINATION: GENERAL: The patient is a pleasant gentleman, somewhat cachectic, appears stated age of 77. VITAL SIGNS: Pulse rate is 53, blood pressure 112/72. HEENT: Normocephalic, atraumatic. HEART: Regular. II/ systolic ejection murmur, prominent S3. LUNGS: Fair air excursion actually. ABDOMEN: Soft, nontender. EXTREMITIES: Pulse 2+ with no edema. CONSULT REPORT [id number] FRANCIS OGLESBY IMPRESSION: Volume overload with known cardiomyopathy. We will add Aldactone. TRANSINT:[id number] Voice Confirmation ID: [id number] DOCUMENT ID: [id number] NICOLASA SLOAN MD at 1505 CC: [id number] DICTATION DATE: 10/23/17 0844 SKULL SPLITTER: 10/23/17 0925 DIS IN 10/25/17 [address] [place] [address]
[~2017-10-22 17:32] MED LIST changes: +KLOR-CON M2020 MEQ PO; +MECLIZINE HCL25 MG PO
[2017-10-22 18:35] LABS: ALBUMIN 3.5 g/dL (3.4-5.0); ALKALINE PHOSPHATASE 80 U/L (46-116); ALT (SGPT) 27 U/L (10-68); BILIRUBIN - TOTAL 1.27 mg/dL (0.2-1.3); CALC OSMOLALITY 297 mosm/kg (275-300); CALCIUM 9.2 mg/dL (8.5-10.1); CARBON DIOXIDE 33.5 mmol/L (21.0-32.0); CHLORIDE - SERUM 101 mmol/L (98-107); CREATININE - SERUM 1.9 mg/dL (0.6-1.3); GLUCOSE 159 mg/dL (74-106); POTASSIUM - SERUM 4.1 mmol/L (3.5-5.1); PROTEIN - SERUM 6.9 g/dL (6.4-8.2); SODIUM 142 mmol/L (136-145); UREA NITROGEN 47 mg/dL (7-18); eGFR NON AFRICAN AMERICAN 37 mL/min (90-120)
[2017-10-22 18:38] LABS: BASOPHILS 0.3 % (0-2); EOSINOPHILS 1.6 % (0-7); HEMATOCRIT 34.5 % (42.0-54.0); HEMOGLOBIN 11.2 g/dL (13.5-17.5); IMMATURE GRANULOCYTES 0.6 % (0-5); MCH 32.7 pg (26.0-34.0); MCHC 32.5 g/dL (31.0-37.0); MCV 100.6 fL (80.0-100.0); MEAN PLATELET VOLUME 11.5 fL (7.4-10.4); MONOCYTES 7.7 % (2-11); NEUTROPHILS 83.8 % (40-80); RBC 3.43 10x6/uL (4.20-6.10); WBC 11.2 10x3/uL (4.8-10.8)
[2017-10-22 18:39] LABS: PLATELET COUNT 212 10x3/uL (130-400)
[2017-10-22 18:51] LABS: CKMB 1.7 U/L (0.0-3.6); CREATINE KINASE 61 UL (21-232); PRO BNP 26337 pg/mL (0-450)
[2017-10-22 18:59] LABS: TROPONIN-I 0.295 ng/mL (0.000-0.060)
[2017-10-22 20:31] VITALS: BP 126/85
[2017-10-22 21:59] VITALS: BP 116/81
[2017-10-22 23:56] VITALS: BP 105/72
[2017-10-23] VITALS (7 sets, daily range): BP systolic 99–116; BP diastolic 61–74; Ht 165.1 cm; Wt 67.5 kg
[2017-10-23 02:03] LABS: CKMB 1.3 U/L (0.0-3.6); CREATINE KINASE 50 UL (21-232)
[2017-10-23 02:06] LABS: TROPONIN-I 0.285 ng/mL (0.000-0.060)
[2017-10-23 08:54] LABS: CKMB 1.1 U/L (0.0-3.6); CREATINE KINASE 39 UL (21-232); TROPONIN-I 0.282 ng/mL (0.000-0.060)
[2017-10-23 13:28] LABS: CKMB 1.2 U/L (0.0-3.6); CREATINE KINASE 50 UL (21-232)
[2017-10-23 13:32] LABS: TROPONIN-I 0.238 ng/mL (0.000-0.060)
[2017-10-24] VITALS: BP 109/74
[2017-10-24 04:00] VITALS: BP 108/72
[2017-10-24 06:06] LABS: BASOPHILS 0.2 % (0-2); EOSINOPHILS 2.3 % (0-7); HEMATOCRIT 32.8 % (42.0-54.0); HEMOGLOBIN 10.5 g/dL (13.5-17.5); IMMATURE GRANULOCYTES 0.4 % (0-5); LYMPHOCYTES 9.4 % (15-50); MEAN PLATELET VOLUME 11.3 fL (7.4-10.4); MONOCYTES 11.1 % (2-11); NEUTROPHILS 76.6 % (40-80); PLATELET COUNT 180 10x3/uL (130-400); RBC 3.28 10x6/uL (4.20-6.10); RDW 16.9 % (11.5-14.5); WBC 8.4 10x3/uL (4.8-10.8)
[2017-10-24 06:24] LABS: ALBUMIN 2.9 g/dL (3.4-5.0); ANION GAP 10.2 mmol/L (8-16); BILIRUBIN - TOTAL 1.41 mg/dL (0.2-1.3); CALCIUM 8.6 mg/dL (8.5-10.1); CARBON DIOXIDE 33.2 mmol/L (21.0-32.0); CREATININE - SERUM 1.8 mg/dL (0.6-1.3); PROTEIN - SERUM 5.9 g/dL (6.4-8.2)
[2017-10-24 06:27] LABS: POTASSIUM - SERUM 3.4 mmol/L (3.5-5.1)
[2017-10-24 08:17] VITALS: BP 103/64
[2017-10-24 11:56] VITALS: BP 123/67
[2017-10-24 15:33] VITALS: BP 103/68
[2017-10-24 21:09] VITALS: BP 107/70
[2017-10-25 01:28] VITALS: BP 115/75
[2017-10-25 05:39] VITALS: BP 101/67
[2017-10-25] MEDS ORDERED: ALDACTONE25 MG PO (07:24)
[2017-10-25 08:16] VITALS: BP 104/64
[2017-10-25 11:25] VITALS: BP 97/57
== END 2017-10-25 16:15 | disposition home or self-care (01) | DRG 291 ==
LOC: D.ER 17:32 → D.M2 10-23 00:30 → D.EDHOLD 10-23 00:30 → D.M2 10-23 01:30
PROVIDERS: Family Medicine
DX: I11.0 Hypertensive heart disease with heart failure (principal); E43 Unspecified severe protein-calorie malnutrition; I50.43 Acute on chronic combined systolic (congestive) and diastolic (congestive) heart failure; I25.10 Atherosclerotic heart disease of native coronary artery without angina pectoris; Z95.5 Presence of coronary angioplasty implant and graft; I42.9 Cardiomyopathy, unspecified; E11.9 Type 2 diabetes mellitus without complications; I34.0 Nonrheumatic mitral (valve) insufficiency